=== PATIENT | female | born 2000 | race Caucasian/White ===

== ENCOUNTER 2020-02-25 08:35 | Outpatient (CLI) | payer OTHER, SELFPAY ==
--- NOTE | ~2020-02-25 | US_ITS ---
EXAMINATION: US pelvic complete w TV DATE: 02/25/2020 10:30 INDICATION: Pelvic pain. Comparison:No prior studies for comparison. TECHNIQUE: Multiple transabdominal and endovaginal sonographic images of the pelvis performed. FINDINGS: The uterus measures 6.5 x 4.4 x 2.9 cm. The endometrial complex measures 3 mm. The right ovary measures 1.9 x 2 x 1.2 cm and the left ovary measures 1.7 x 1.4 x 1.4 cm. There are small follicles in each ovary. There is no free fluid in the pelvis. There are no abnormal masses seen on either side. IMPRESSION: 1. Normal pelvic ultrasound. Reviewed, dictated and finalized at location A.
== END 2020-02-25 08:36 | disposition home or self-care (01) ==
LOC: ANHIMG 08:42
PROVIDERS: Visit Provider Obstetrics & Gynecology Gynecology
DX: R10.2 Pelvic and perineal pain (principal)
CPT/HCPCS: 76830; 76856

== ENCOUNTER 2020-03-09 06:03 | Outpatient (CLI) | payer OTHER, SELFPAY ==
[2020-03-09 17:05] LABS: SARS-CoV-2 RNA PCR Negative
--- NOTE | 2020-03-12 12:38 | OP_ITS ---
DATE OF PROCEDURE: 03/12/2020 PREOPERATIVE DIAGNOSIS: Pelvic pain. POSTOPERATIVE DIAGNOSIS: Pelvic pain. PROCEDURE PERFORMED: Diagnostic laparoscopy. SURGEON: Desiree Swenson M.D. ANESTHESIA: General with ET tube. FINDINGS: The tubes, ovaries, uterus, peritoneal surfaces, appendix and liver edge appeared grossly normal. There were no adhesions. There are no areas of endometriosis. ESTIMATED BLOOD LOSS: 5 cc. PATHOLOGY: None. DESCRIPTION OF PROCEDURE: The patient was taken to the operating room, placed under general anesthesia in the dorsal lithotomy position. The bladder was drained by the bagman/woman with a red rubber catheter prior to my arrival. The bivalve speculum was placed in the vagina. Cervix was grasped on the anterior lip with a tenaculum. The uterus was sounded to 7 cm. The 6 cm Lizzy manipulator was placed. All other instruments were removed from the vagina. Attention was turned to the abdomen. A vertical skin incision was made at the base of the umbilicus. The abdomen was tented and the Veress needle placed. Water drop test was normal. Opening patient pressure was 6 mmHg. Pneumoperitoneum was obtained to a patient pressure of 15. The Veress needle was then removed. The abdomen was tented with towel clamps, and the 5 mm Optiview placed. Intraabdominal placement was confirmed with the laparoscope. The patient was placed in Trendelenburg. A 5 mm skin incision was made 2 cm above the symphysis pubis. The trocar is placed under direct visualization. The blunt probe was used to visually inspect all areas of the pelvis and no abnormalities were noted. The instruments are removed. Pneumoperitoneum is reduced. Skin incisions are closed using 4-0 nylon in an interrupted fashion. Vaginal instruments were removed. The patient was awakened from anesthesia and taken to Recovery in stable condition. D I MT: [facility]
== END 2020-03-09 06:04 | disposition home or self-care (01) ==
LOC: ANHCOVIDDT 06:03
PROVIDERS: Visit Provider Obstetrics & Gynecology Gynecology
DX: Z20.828 Contact with and (suspected) exposure to other viral communicable diseases (principal); Z01.812 Encounter for preprocedural laboratory examination
CPT/HCPCS: 87635; C9803; U0003

== ENCOUNTER 2020-03-12 01:58 | Day surgery (SDC) | payer OTHER, SELFPAY ==
[2020-03-07 14:23] VITALS: BMI 27.0
[2020-03-12] VITALS (8 sets, daily range): BP systolic 105–132; BP diastolic 63–90; PULSE 77–92; RESP 14–22; TEMP 36.1–36.6; O2SAT 94–100
--- NOTE | 2020-03-12 07:28 | P.HP_ITS ---
History of Present Illness History of Present Illness Consent: Risks, benefits, and alternatives have been discussed and questions answered. Patient agrees to proceed with procedure. Chief complaint: Pelvic Pain Narrative: Debbie eLal is a 20 year old female with chronic pelvic pain. Initially pain was pelvic floor and was treated and on last exam, pelvic floor nontender, relaxed. Most recent exam was not able to reproduce the pain and it has been waking her from sleep. Pelvic u/s was also normal. Trial of continuous OCP's was not successful. Recommend to proceed with laparoscopy but reviewed that may also be visually normal with no diagnosis. Risks of proceedure including infection, bleeding, and injury to internal organs discussed with patient. Patient is also informed of need for general anesthesia. Patient agrees to proceed. [facility] Past Medical History Medical History (Updated 03/12/20 @ 07:36 by Desiree Swenson MD) Anxiety Chlamydia Condyloma Depression HSV (herpes simplex virus) anogenital infection Postcoital bleeding s/p cervical ablation Meds Home Medications and Allergies Home Medications Medication Instructions Recorded Confirmed Type acetaminophen-codeine 1 tablet PO Q4H PRN 03/07/20 03/07/20 History [Tylenol-Codeine #3] fluoxetine 40 mg PO QPM 03/07/20 03/07/20 History norethindrone-e.estradiol-iron 1 tablet PO DAILY 03/07/20 03/07/20 History [Blisovi Fe 1.5/30 (28)] Allergies Allergy/AdvReac Type Severity Reaction Status Date / Time No Known Allergies Allergy Unverified 03/07/20 14:24 Exam Const: General: healthy appearing and alert Orientation/consciousness: patient oriented x3 GI: GI Palp: Yes Soft to palpation, No Tenderness to palpation present (GI) and No Palpable mass present : External Female Exam: normal external appearance Speculum Exam - Vagina: normal appearance of the vagina and normal vaginal discharge Speculum Exam - Cervix: normal appearance of the cervix Bimanual exam- vagina & uterus: uterine size normal and consistency normal Bimanual Exam- Adnexa, other: normal adnexae and No adnexal tenderness Neuro: General: patient oriented x3 Assessment and Plan Assessment and plan (1) Pelvic pain: Code(s): R10.2 - Pelvic and perineal pain Status: Acute Assessment and Plan: plan to proceed with laparoscopy
[2020-03-12] MEDS: LACTATED RINGERS 1,000 ML 30 ML IV CONT ×2 (07:55→10:11)
--- NOTE | 2020-03-12 08:08 | WPDANESEPPF ---
Anes - Initial Pre Proc Eval Procedure: Operation Date: 03/12/20 09:15 Proposed Procedures p Diagnostic Laparoscopy - Desiree Swenson MD Date/Time: 03/12/20 08:08 Surgeon: Desiree Swenson MD Pre Op Diagnosis: Pelvic Pain Patient Data Age: 20 Gender: F Height: 5 ft 11 in Weight: 86.2 kg Last Vital Signs Temp 36.6 C 03/12/20 07:42 Pulse 86 03/12/20 07:42 Resp 20 03/12/20 07:42 BP 105/66 03/12/20 07:42 Pulse Ox 98 03/12/20 07:42 Allergies Allergy/AdvReac Type Severity Reaction Status Date / Time No Known Allergies Allergy Unverified 03/12/20 07:44 Home Medications Medication Instructions Recorded Confirmed Type acetaminophen-codeine 1 tablet PO Q4H PRN 03/07/20 03/12/20 History [Tylenol-Codeine #3] fluoxetine 40 mg PO QPM 03/07/20 03/12/20 History norethindrone-e.estradiol-iron 1 tablet PO DAILY 03/07/20 03/12/20 History [Blisovi Fe 1.5/30 (28)] Patient hx anesthesia problems: none Family hx anesthesia problems: none PMFSH Past Medical History Medical History Anxiety Chlamydia Condyloma Depression HSV (herpes simplex virus) anogenital infection Postcoital bleeding s/p cervical ablation Anes - Eval Final PreProcedure Day of Procedure 03/12/20 08:08 Patient weight: normal Heart: regular rate and rhythm Lungs: clear to auscultation Airway: Mallampati scale class II Neurological: alert and oriented Last oral intake: >/= 8 hours ASA classification: II Anesthetic plan: proceed Anesthesia type and monitoring: general ETT and standard monitoring Informed Consent: The patient's anesthetic plan and its attendant risks and benefits were discussed with the patient/family/POA. Questions were solicited and answers provided to the satisfaction of the patient/family/POA.
[2020-03-12] MEDS: KETOROLAC 30 MG/ML VIAL (*BKC) 15 MG IV PUSH (10:02)
--- NOTE | 2020-03-12 10:08 | PM.OP ---
Procedure Note - Brief Procedure Note - Brief Date of procedure: 03/12/20 Pre-op diagnosis: Pelvic Pain Post-op diagnosis: same Procedure performed: diagnostic laparoscopy Anesthesia: GETA Surgeon: Desiree Swenson MD Estimated blood loss (mL): 5 Drains: No Packing: No Pathology: none sent Complications: No immediate complications Condition: stable Disposition: PACU Findings: normal appearing tubes, ovaries, uterus, appendix, liver edge, and peritoneal surfaces; no adhesions or endometriosis seen;
--- NOTE | 2020-03-12 11:00 | OP_ITS ---
This report was moved to the correct visit, [id number] on 03/13/2020 Original report was signed by Dr. Desiree Swenson on 03/09/2020 at 1529. DATE OF PROCEDURE: 03/12/2020 PREOPERATIVE DIAGNOSIS: Pelvic pain. POSTOPERATIVE DIAGNOSIS: Pelvic pain. PROCEDURE PERFORMED: Diagnostic laparoscopy. SURGEON: Desiree Swenson M.D. ANESTHESIA: General with ET tube. FINDINGS: The tubes, ovaries, uterus, peritoneal surfaces, appendix and liver edge appeared grossly normal. There were no adhesions. There are no areas of endometriosis. ESTIMATED BLOOD LOSS: 5 cc. PATHOLOGY: None. DESCRIPTION OF PROCEDURE: The patient was taken to the operating room, placed under general anesthesia in the dorsal lithotomy position. The bladder was drained by the clubhouse manager with a red rubber catheter prior to my arrival. The bivalve speculum was placed in the vagina. Cervix was grasped on the anterior lip with a tenaculum. The uterus was sounded to 7 cm. The 6 cm Lizzy manipulator was placed. All other instruments were removed from the vagina. Attention was turned to the abdomen. A vertical skin incision was made at the base of the umbilicus. The abdomen was tented and the Veress needle placed. Water drop test was normal. Opening patient pressure was 6 mmHg. Pneumoperitoneum was obtained to a patient pressure of 15. The Veress needle was then removed. The abdomen was tented with towel clamps, and the 5 mm Optiview placed. Intraabdominal placement was confirmed with the laparoscope. The patient was placed in Trendelenburg. A 5 mm skin incision was made 2 cm above the symphysis pubis. The trocar is placed under direct visualization. The blunt probe was used to visually inspect all areas of the pelvis and no abnormalities were noted. The instruments are removed. Pneumoperitoneum is reduced. Skin incisions are closed using 4-0 nylon in an interrupted fashion. Vaginal instruments were removed. The patient was awakened from anesthesia and taken to Recovery in stable condition. D I MT: [facility] Dictated By: Desiree Swenson MD 03/12/20 1100 Transcribed Date/Time: 03/12/20 1233 Signed By: Desiree Swenson MD 03/12/20 1529 [facility]
== END 2020-03-12 12:15 | disposition home or self-care (01) ==
PROVIDERS: Visit Provider Obstetrics & Gynecology Gynecology
PROC: (CPT 49320; principal; 2020-03-12 09:15)
DX: R10.2 Pelvic and perineal pain (principal)
CPT/HCPCS: 49320; A9270; J0131; J0330; J1100; J1885; J2001; J2250; J2405; J2704; J3010; J7030; J7120

== ENCOUNTER 2021-04-05 17:47 | Emergency (ER) | payer BC, SELFPAY ==
--- NOTE | ~2021-04-05 | XR_ITS ---
EXAMINATION: XR chest 2V DATE: 04/05/2021 18:17 INDICATION: One week of left-sided chest pain and palpitations TECHNIQUE: PA and lateral views of the chest were obtained. COMPARISON: None FINDINGS: The lungs are clear with no focal airspace opacities, pulmonary edema, pleural effusion or pneumothor ax. The cardiomediastinal silhouette is normal. Visualized bones and soft tissues are unremarkable. IMPRESSION: 1. No acute cardiopulmonary disease. Reviewed, dictated and finalized at location A.
[2021-04-05 17:48] VITALS: BP 140/75; PULSE 101; RESP 20; TEMP 36.7; O2SAT 98
--- NOTE | 2021-04-05 17:48 | ECG_ITS ---
Measurements Intervals [place] Rate: 103 P: 48 UT: 120 QRS: 57 QRSD: 99 T: 51 QT: 349 QTc: 459 Interpretive Statements SINUS TACHYCARDIA POSSIBLE LEFT ATRIAL ENLARGEMENT BASELINE WANDER- III, AVF, V4-V6 BORDERLINE ECG Electronically Signed On 04-07-2021 17:54:14 CDT by Tavo Cook D.O.
[2021-04-05 18:22] LABS: Basophils Percent Auto 0.5 % (0.2-1.2); Eosinophils Absolute Auto 0.1 K/mm3 (0-0.3); Eosinophils Percent Auto 1.3 % (0-4.4); Hematocrit 38.7 % (37.0-47.0); Hemoglobin 13.3 g/dL (12.0-15.0); Immature Granulocyte Absolute 0.02 K/mm3 (0.00-0.031); Immature Granulocyte Percent A 0.3 % (0-0.5); Lymphocytes Absolute Auto 2.77 K/mm3 (0.9-3.2); Lymphocytes Percent Auto 36.9 % (18.3-44.2); Mean Corpuscular HGB Conc 34.4 g/dl (32-36); Mean Corpuscular Hemoglobin 30.3 pg (26-34); Mean Corpuscular Volume 88.2 fl (80-100); Mean Platelet Volume 9.9 fl (7.4-10.4); Monocytes Absolute Auto 0.4 K/mm3 (0.1-0.6); Monocytes Percent Auto 5.9 % (2.6-8.5); Neutrophils Absolute Auto 4.1 K/mm3 (1.3-6.7); Neutrophils Percent Auto 55.1 % (45.5-73.1); Platelet Count Result 362 k/mm3 (150-375); Red Blood Count 4.39 M/mm3 (4.2-5.4); Red Cell Distribution Width 12.7 % (11.5-14.5); White Blood Count 7.5 K/mm3 (4.5-10.0)
[2021-04-05 18:31] LABS: Prothrombin Time 14.1 Seconds (11.1-14.7)
[2021-04-05 18:32] LABS: Partial Thromboplastin Time 25.6 SECONDS (22.3-36.8)
[2021-04-05 18:34] LABS: Anion Gap 9 mmol/L (8-16); Blood Urea Nitrogen 11 mg/dL (7-17); CRP 0.9 mg/dL (<1.0); Calcium 9.5 mg/dL (8.4-10.2); Carbon Dioxide 24 mmol/L (22-30); Chloride 106 mmol/L (98-107); Estimated CRCL calculation 125 ml/min; Estimated Glomerular Filt Rate > 60; Glucose 113 mg/dL (65-105); Potassium 3.5 mmol/L (3.4-5.0); Sodium 139 mmol/L (137-145)
[2021-04-05 18:43] LABS: Troponin I < 0.012 ng/mL (0.000-0.034)
[2021-04-05 18:51] LABS: Erythrocyte Sedimentation Rate 17 mm/hr (0-20)
--- NOTE | 2021-04-05 19:47 | PC.NURSE ---
Pt also c/o dizziness along with intermittent CP. States symptoms have been going on for about 1 week. States she is experiencing palpations and states it feels like my heart is going to pound out of my chest . Reports 4/10 CP at this time. Denies dizziness at this time.
--- NOTE | 2021-04-05 20:52 | ED.ARRPALP ---
HPI - Arrhythmia/Palpitations General Chief Complaint: Arrhythmia/Palpitations Stated Complaint: palpitations Time Seen by Provider: 04/05/21 19:30 Source: patient Mode of arrival: ambulatory Limitations: no limitations History of Present Illness HPI narrative: Patient is a 21-year-old female who presents complaining of chest pain. Patient reports intermittent chest pain for the past week. She denies cough, fever or shortness of breath. She reports episodes of chest pain have been intermittent and lasts anywhere from 10 minutes to 2 hours. She denies all other complaints at this time. Related Data Home Medications Medication Instructions Recorded Confirmed fluoxetine 40 mg PO QPM 03/07/20 03/12/20 norethindrone-e.estradiol-iron 1 tablet PO DAILY 03/07/20 03/12/20 [Blisovi Fe 1.5 (28)] Allergies Allergy/AdvReac Type Severity Reaction Status Date / Time No Known Allergies Allergy Unverified 03/12/20 07:44 Review of Systems Review of Systems: Narrative: CONSTITUTIONAL: Denies fever, chills, or sweats. EYES: Denies visual changes, redness, or discharge. ENT: Denies rhinorrhea, congestion, sore throat, or otalgia. CARDIOVASCULAR: Reports chest pain and palpitations. RESPIRATORY: Denies cough or dyspnea. GASTROINTESTINAL: Denies abdominal pain, nausea, vomiting, or diarrhea. GENITOURINARY: Denies dysuria or hematuria. SKIN: Denies rash or itching. MUSCULOSKELETAL: Denies back pain, joint pain, or myalgia. NEUROLOGIC: Denies headache, numbness, dizziness, or weakness. PSYCHIATRIC: Denies anxiety or depression. [facility] Past Medical History Medical History Anxiety Chlamydia Condyloma Depression HSV (herpes simplex virus) anogenital infection Postcoital bleeding s/p cervical ablation Surgical History Surgical History H/O laparoscopy Social History Social History (Updated 04/05/21 @ 21:30 by JOSH Shelley) Smoking status: Never smoker Alcohol intake: never Substance use: never Living arrangements: with family Occupation/Education: occupation Comments At the time of signature, I have reviewed and agree with nursing past medical, surgical, social, and family history unless otherwise noted. Please see nursing chart for further information. There is no relevant family history pertinent to the presenting complaint. Exam Narrative: Exam Narrative: GENERAL: Well-appearing, well-nourished, and in no acute distress. HEAD: Normocephalic, atraumatic. EYES: EOMI. No redness or drainage. Conjunctiva are normal. ENT: Mucous membranes pink and moist. NECK: AROM. Supple. No lymphadenopathy. CHEST: No respiratory distress. Clear to auscultation. HEART: Regular rate and rhythm. No murmur appreciated. Normal peripheral pulses. GI: Soft, nontender without rebound, or guarding. No distention. Bowel sounds normal in all quadrants. MUSCULOSKELETAL: No bony tenderness. EXTREMITIES: Normal range of motion. No edema. SKIN: Warm, dry, no rash. NEURO: No focal deficits. Alert and oriented x3. Gait steady. PSYCH: Normal affect. No signs of depression or anxiety. Course Vital Signs Vital signs: Vital Signs Temperature 36.7 C 04/05/21 17:48 Pulse Rate 101 H 04/05/21 17:48 Respiratory Rate 20 04/05/21 17:48 Blood Pressure 140/75 04/05/21 17:48 Pulse Oximetry 98 04/05/21 17:48 Temperature 36.7 C 04/05/21 17:48 Pulse Rate 94 04/05/21 21:04 Respiratory Rate 24 H 04/05/21 21:04 Blood Pressure 120/75 04/05/21 21:04 Pulse Oximetry 99 04/05/21 21:04 MDM - Arrhythmia/Palpitations MDM Narrative Medical decision making narrative: Patient's labs are unremarkable. EKG normal. Discussed with patient the need to follow-up with PCP or cardiology for further evaluation. Patient is free of chest pain at this time, she denies shortness of breath or other comp
[2021-04-05 21:04] VITALS: BP 120/75; PULSE 94; RESP 24; O2SAT 99
[2021-04-05 21:22] LABS: Troponin I < 0.012 ng/mL (0.000-0.034)
[2021-04-05 21:49] VITALS: BP 106/74; PULSE 87; RESP 19; O2SAT 99
== END 2021-04-05 21:49 | disposition home or self-care (01) ==
PROVIDERS: Emergency Medicine; Emergency Provider Nurse Practitioner
DX: R07.9 Chest pain, unspecified (principal); F41.9 Anxiety disorder, unspecified; F32.9 Major depressive disorder, single episode, unspecified; R00.0 Tachycardia, unspecified; R94.31 Abnormal electrocardiogram [ECG] [EKG]
CPT/HCPCS: 36415; 71046; 80048; 84484; 85025; 85610; 85652; 85730; 86140; 93005; 99284

== ENCOUNTER 2021-06-27 10:10 | Emergency (ER) | payer BC, SELFPAY ==
[2021-06-27 10:29] VITALS: BP 131/75; PULSE 99; RESP 20; TEMP 36.9; O2SAT 99
--- NOTE | 2021-06-27 10:57 | ED.URI ---
HPI - URI/Sore Throat General Chief Complaint: Upper Respiratory Infection Stated Complaint: congestion/sore throat/cough/loss of smell Time Seen by Provider: 06/27/21 10:55 Source: patient and RN notes reviewed Mode of arrival: ambulatory Limitations: no limitations History of Present Illness HPI Narrative: 21-year-old female with history of benign heart palpitations, anxiety presents with concern for 4-day history of rhinorrhea, nasal congestion, occasional cough, sore throat, headache. She also reports decreased sense of taste and smell. Reports she has been vaccinated for Covid. She denies any known sick contacts. Reports she has been taking [id number] severe cold and flu medicine which improve her symptoms. MD elicited complaint: nasal congestion Related Data Home Medications Medication Instructions Recorded Confirmed fluoxetine 40 mg PO QPM 03/07/20 03/12/20 Allergies Allergy/AdvReac Type Severity Reaction Status Date / Time No Known Allergies Allergy Unverified 06/27/21 10:30 Review of Systems Review of Systems: CONSTITUTIONAL: Denies malaise, chills, sweats, or fever. EYES: Denies visual changes, redness, or discharge. ENT: Reports rhinorrhea, congestion, and sore throat. Reports sinus pain, otalgia CARDIOVASCULAR: Denies chest pain, palpitations, or edema. RESPIRATORY denies cough or dyspnea. GASTROINTESTINAL: Denies abdominal pain, nausea, vomiting, diarrhea SKIN: Denies rash or itching. MUSCULOSKELETAL: Denies myalgia. NEUROLOGIC: Reports headache. All systems reviewed & are unremarkable except as noted in HPI and below PMFSH Past Medical History Medical History Anxiety Chlamydia Condyloma Depression HSV (herpes simplex virus) anogenital infection Postcoital bleeding s/p cervical ablation Surgical History Surgical History H/O laparoscopy Social History Social History (Updated 04/05/21 @ 21:30 by JOSH Shelley) Smoking status: Never smoker Alcohol intake: never Substance use: never Comments At time of signature, agree with nursing past medical, surgical, social and family history. There is no relevant family history pertinent to the presenting complaint Exam Narrative: GENERAL: Well-appearing, well-nourished, and in no acute distress. HEAD: Normocephalic EYES: PERRLA, conjunctivae clear ENT: Nares clear, clear discharge. Mucous membranes moist. TM pearly sim with sharp light reflex bilaterally; no tragal tenderness. Oropharynx not erythematous without lesions. Tonsils not enlarged and without exudate, no drooling, no hoarseness, no trismus, uvula midline. NECK: Supple. No lymphadenopathy CHEST: Clear to auscultation, breath sounds equal. No wheezing, rhonchi, rales, or stridor. No respiratory distress, speaks in full sentences. HEART: Regular rate and rhythm. No murmur heard. SKIN: Warm, dry, no visible rash. NEURO: Alert and oriented x3. PSYCH: Normal mood and affect Course Course Emergency Course: Patient is aware of diagnosis, understands and agrees to treatment plan. Anticipatory guidance given. Patient agrees to follow-up as directed and is aware of reasons to seek care at the emergency department. Portions of this record may have been created with voice recognition software Vital Signs Vital signs: Vital Signs Temperature 98.4 F 06/27/21 10:29 Pulse Rate 99 06/27/21 10:29 Respiratory Rate 20 06/27/21 10:29 Blood Pressure 131/75 06/27/21 10:29 Pulse Oximetry 99 06/27/21 10:29 Temperature 98.4 F 06/27/21 10:29 Pulse Rate 99 06/27/21 10:29 Respiratory Rate 20 06/27/21 10:29 Blood Pressure 131/75 06/27/21 10:29 Pulse Oximetry 99 06/27/21 10:29 Reviewed. MDM - URI/Sore Throat MDM Narrative Medical decision making narrative: Differential diagnosis considered: Gonzalez virus, strep pharyngitis, allergic rhinit
[2021-06-28 18:14] LABS: SARS-CoV-2 RNA PCR Negative
== END 2021-06-27 11:08 | disposition home or self-care (01) ==
PROVIDERS: Emergency Provider Nurse Practitioner; PCP Family Medicine
DX: J06.9 Acute upper respiratory infection, unspecified (principal); F41.9 Anxiety disorder, unspecified; F32.9 Major depressive disorder, single episode, unspecified; Z20.822 Contact with and (suspected) exposure to COVID-19
CPT/HCPCS: 87426; 99213; C9803; G0463; U0003; U0005

== ENCOUNTER 2022-03-28 17:11 | Emergency (ER) | payer BC, SELFPAY ==
[2022-03-28 17:40] VITALS: BP 126/78; PULSE 93; RESP 18; TEMP 36.3; O2SAT 100
[2022-03-28 19:26] VITALS: BP 116/67; PULSE 85
[2022-03-28 19:27] VITALS: BP 105/70; PULSE 94
[2022-03-28 19:28] VITALS: BP 112/75; PULSE 94
--- NOTE | 2022-03-28 19:28 | ED.DIZZY ---
HPI - Dizziness General Chief Complaint: Dizziness Stated Complaint: CHRONIC DIZZY, NAUSEA,VISUAL CHANGES Time Seen by Provider: 03/28/22 19:02 Source: patient and RN notes reviewed Mode of arrival: ambulatory Limitations: no limitations History of Present Illness HPI Narrative: This is a 22 year old female who presents for evaluation of intermittent dizziness for a few months. Patient reports intermittent spells of room spinning that occurs intermittently. She reports this is not daily and not constant. She has not been dizzy today. Her dizziness is associated with nausea. She denies associated fever, chills, vomiting, tinnitus, URI, or ear pain. She also noted that yesterday she has diffuse headache that resolved after taking naproxen. She reports this headache lasted 6 hours, and she has not had headache today. She also noticed on Thursday she has some blurred vision when she was trying to read. She denies having any visual changes today. She denies having any symptoms at all today. She came to ER because she called her PCP who told her to go to Urgent care because they were unable to see her. She called urgent care who told her to go to ER. She has been speaking to her OBGYN regarding her dizziness, and it was presumed to be related to her PCOS. MD elicited complaint: dizziness Related Data Home Medications Medication Instructions Recorded Confirmed fluoxetine 40 mg capsule 40 mg PO QPM 03/07/20 06/27/21 Allergies Allergy/AdvReac Type Severity Reaction Status Date / Time No Known Allergies Allergy Unverified 03/28/22 19:03 Review of Systems Review of Systems: All systems reviewed & are unremarkable except as noted in HPI and below Constitutional: Constitutional: Denies chills and Denies fatigue Eyes: Eyes: Reports change in vision and Denies photophobia ENT: Reports vertigo, Reports dizziness, Denies nasal congestion and Denies sore throat Cardiovascular: Cardiovascular: Denies chest pain, Denies rapid heart rate and Denies radiating jaw, neck or arm pain Respiratory: Respiratory: Denies chest congestion, Denies cough and Denies dyspnea Gastrointestinal: Gastrointestinal: Denies abdominal pain, Denies diarrhea, Reports nausea and Denies vomiting Psychiatric: Psychiatric: Denies anxiety and Denies depression [facility] Past Medical History Medical History Anxiety Chlamydia Condyloma Depression HSV (herpes simplex virus) anogenital infection Postcoital bleeding s/p cervical ablation Surgical History Surgical History H/O laparoscopy Social History Social History (Updated 04/05/21 @ 21:30 by Meena Nathan, JOSH) Smoking status: Never smoker Alcohol intake: never Substance use: never Exam Const: General: healthy appearing, no acute distress and alert Nutritional Appearance: well nourished Orientation/consciousness: patient oriented x3 Limitations: no limitations HENMT: Head: normal to inspection Ears: TM's normal bilaterally General nose exam: Normal external nose present Face and sinus: normal facial exam Mouth: Yes Normal oral and palatal mucosa present, Yes lip normal and Yes moist mucous membranes Throat: posterior oropharynx normal and uvula midline Eyes: Conjunctivae: conjunctivae normal Pupils: Equal, round and reactive pupils present EOM: EOMs intact bilaterally Neck: Neck: normal visual inspection Chest: Chest palpation & inspection: normal inspection of the chest Resp: Effort & Inspection: normal respiratory effort Auscultation: clear to auscultation bilaterally and breath sounds present Cardio: Rate: regular rate Rhythm: regular rhythm Heart sounds: no murmurs GI: GI Palp: Yes Soft to palpation, No Tenderness to palpation present (GI), No Guarding due to palpation present (GI) and No Rigid due to palpation Auscultation: normal kellie
[2022-03-28 19:36] LABS: Basophils Percent Auto 0.3 % (0.2-1.2); Eosinophils Absolute Auto 0.1 K/mm3 (0-0.3); Eosinophils Percent Auto 0.9 % (0-4.4); Hematocrit 35.8 % (37.0-47.0); Hemoglobin 12.1 g/dL (12.0-15.0); Immature Granulocyte Absolute 0.01 K/mm3 (0.00-0.031); Immature Granulocyte Percent A 0.2 % (0-0.5); Lymphocytes Absolute Auto 2.66 K/mm3 (0.9-3.2); Lymphocytes Percent Auto 40.3 % (18.3-44.2); Mean Corpuscular HGB Conc 33.8 g/dl (32-36); Mean Corpuscular Hemoglobin 30.9 pg (26-34); Mean Corpuscular Volume 91.3 fl (80-100); Mean Platelet Volume 10.2 fl (7.4-10.4); Monocytes Absolute Auto 0.5 K/mm3 (0.1-0.6); Monocytes Percent Auto 6.8 % (2.6-8.5); Neutrophils Absolute Auto 3.4 K/mm3 (1.3-6.7); Neutrophils Percent Auto 51.5 % (45.5-73.1); Platelet Count Result 395 k/mm3 (150-375); Red Blood Count 3.92 M/mm3 (4.2-5.4); Red Cell Distribution Width 13.2 % (11.5-14.5); White Blood Count 6.6 K/mm3 (4.5-10.0)
[2022-03-28 19:37] LABS: Appearance Urine Clear (Clear); Bilirubin Urine Negative (Negative); Blood Urine Negative (Negative); Color Urine Yellow (Yellow); Glucose Urine UA Negative (Negative); Ketones Urine Trace mg/dL (Negative); Leukocyte Esterase Ur Trace LEU/UL (Negative); Nitrate Urine Negative (Negative); Protein Urine Negative (Negative); Specific Grav Ur 1.025 (1.001-1.035); Urobilinogen Urine 0.2 mg/dL (<2.0); pH Urine 6.5 (5.0-9.0)
[2022-03-28 19:49] LABS: Alanine Aminotransferase 26 U/L (6-35); Albumin Level 4.2 g/dL (3.5-5.1); Alkaline Phosphatase 58 U/L (38-126); Anion Gap 8 mmol/L (8-16); Aspartate Amino Transferase 33 U/L (14-36); Bilirubin,Total 0.1 mg/dL (0.2-1.3); Blood Urea Nitrogen 12 mg/dL (7-17); Calcium 8.8 mg/dL (8.4-10.2); Carbon Dioxide 24 mmol/L (22-30); Chloride 106 mmol/L (98-107); Estimated CRCL calculation 131 ml/min; Estimated Glomerular Filt Rate > 60; Glucose 78 mg/dL (65-110); Sodium 138 mmol/L (137-145)
[2022-03-28 19:54] LABS: Bacteria Urine Trace /hpf; Mucus Urine Rare /lpf; Squamous Epithelial Cell Urine Many /hpf (Few)
[2022-03-28 19:55] LABS: Add Urine Microscopic? YES
[2022-03-28 20:12] VITALS: BP 116/95; PULSE 96; RESP 20; O2SAT 98
== END 2022-03-28 20:21 | disposition home or self-care (01) ==
PROVIDERS: Emergency Provider General Practice; PCP Family Medicine
DX: R42 Dizziness and giddiness (principal); F41.9 Anxiety disorder, unspecified; F32.9 Major depressive disorder, single episode, unspecified
CPT/HCPCS: 36415; 80053; 81001; 81025; 83735; 85025; 99283